=== PATIENT | male | born 1960 | race Two or more races ===

== ENCOUNTER 2019-12-07 11:07 | Emergency (ER) | payer OTHER ==
[~2019-12-07] VITALS: Ht 167.6 cm; Wt 76.2 kg
[2019-12-07] MEDS ORDERED: LOSARTAN POTASS50 MG (11:49)
[2019-12-07] MEDS ORDERED: TENORMIN50 M1 (11:49)
== END 2019-12-07 13:23 | disposition home or self-care (01) ==
LOC: ER 11:07
DX: J03.90 Acute tonsillitis, unspecified (principal)